=== PATIENT | male | born 1990 | race Caucasian/White ===

== ENCOUNTER → 2020-12-20 12:59 | Outpatient (CLI) | payer BC, SELFPAY | PROVIDERS: PCP Family Medicine; Visit Provider Nurse Practitioner | DX: Z20.822 Contact with and (suspected) exposure to COVID-19 (principal) | CPT/HCPCS: C9803; U0003; U0005 ==

== ENCOUNTER 2021-02-16 11:53 | Emergency (ER) | payer BC, SELFPAY ==
[2021-02-16 13:27] VITALS: BP 141/96; PULSE 74; RESP 19; TEMP 36.9; O2SAT 98; BMI 33.9
--- NOTE | 2021-02-16 13:50 | HMH.EDUTC ---
[facility] [place] Clinical Impression: Sinusitis Qualifiers: Sinusitis location: unspecified location Chronicity: acute Recurrence: non-recurrent Qualified Code(s): J01.90 - Acute sinusitis, unspecified Otitis media Qualifiers: Otitis media type: suppurative Chronicity: acute Laterality: bilateral Recurrence: non-recurrent Spontaneous tympanic membrane rupture: without spontaneous rupture Qualified Code(s): H66.003 - Acute suppurative otitis media without spontaneous rupture of ear drum, bilateral Right conjunctivitis Qualifiers: Conjunctivitis type: acute Acute conjunctivitis type: unspecified Qualified Code(s): H10.31 - Unspecified acute conjunctivitis, right eye Disposition: Home, Self-Care Condition on Discharge: Good Instructions: How to Instill Eye Drops, DI for Sinusitis, DI for Conjunctivitis Additional Instructions: Drink plenty of fluids. Take tylenol or ibuprofen for pain or fever. Take the medications as directed. Follow up with your regular doctor. GO TO THE ER FOR ANY WORSENING SYMPTOMS Use the eye drops as directed. Strict hand washing in the house hold, because conjunctivitis is very contagious. Follow up with your regular doctor. GO TO THE ER FOR ANY WORSENING SYMPTOMS OR CONCERNS Prescriptions: predniSONE [Deltasone 10mg tablet] 10 mg PO BID 3 Days #6 tab Transmission Status: Received by [id number] Moxifloxacin HCl [Vigamox] 1 drp EYE-RIGHT TID 7 Days #3 ml Transmission Status: Received by [id number] Azithromycin [Z-Aryan 250mg Tab*] 250 mg PO UD DOSE PK #6 tab Transmission Status: [id number] Referrals: Eleazar Gamez MD [Primary Care Provider] - Time of Disposition: 14:09 Medical Decision Making - Medical Records Medical records reviewed: No: I reviewed the patient's medical records. - [facility] Inquiry Pt receiving controlled substance: No Vital Signs: 02/16/21 13:27 02/16/21 14:27 Temperature 98.4 F 98.4 F Temperature Source Oral Pulse Rate 74 Pulse Rate [Left] 74 Respiratory Rate 19 19 Blood Pressure 141/96 H Blood Pressure [Right Arm] 141/96 H Blood Pressure Mean [Right Arm] 111 02 Sat by Pulse Oximetry 98 - Lab Data Lab results reviewed: Yes: I reviewed the patient's lab results. [facility] [place] - General Stated complaint: possible pink eye, congestion Time Seen by Provider: 02/16/21 13:50 Mode of Arrival: Ambulatory Source of Information: Patient Limitations: No Limitations Description of Symptoms (Recalled from Triage Doc. by RN): pt believes he has conjunctivitis in his R eye. pt also c/o bilateral ear aches. HEENT Symptoms (Recalled from RN notes): Yes (redness of R eye and bilateral ear aches) Resp Symptoms (Recalled from RN notes): No Skin Symptoms (Recalled from RN notes): No MS Symptoms (Recalled from RN notes): No Functional Status (Recalled from RN notes): wnl - History of Present Illness Provider Complaint: He states that for the past 2 days he has had sinus congestion and bilateral ear pain and pressure. He woke up this morning with right eye matted together. His right eye has been irritated and he has had excessive tearing in that eye since this morning. He denies any eye injury or foreign body. He denies any vision changes. - Related Data Previous Rx's Medication Instructions Recorded tqkjuqheiumpkel-xmxbczbctrvwmcm-RY 10 ml PO Q4-6H PRN #240 ml 09/12/17 2 mg-30 mg-10 mg/5 mL oral syrup loratadine 10 mg tablet 10 mg PO ONCE #30 tab 09/12/17 Azithromycin [Z-Aryan 250mg Tab*] 250 mg PO UD DOSE PK #6 tab 02/16/21 Moxifloxacin HCl [Vigamox] 1 drp EYE-RIGHT TID 7 Days #3 ml 02/16/21 predniSONE [Deltasone 10mg tablet] 10 mg PO BID 3 Days #6 tab 02/16/21 Allergies Allergy/AdvReac Type Severity Reaction Status Date / Time No Known Allergies Allergy Verified 09/12/17 14:18 - Worker's Comp Is this a Worker's Comp case?: No [facility] History - Hepatitis A Screen Drug use
[2021-02-16 14:27] VITALS: BP 141/96; PULSE 74; RESP 19; TEMP 36.9
== END 2021-02-16 14:28 | disposition home or self-care (01) ==
LOC: UTC 11:55
PROVIDERS: Emergency Provider Nurse Practitioner Family; PCP Family Medicine
DX: J01.90 Acute sinusitis, unspecified (principal); H66.003 Acute suppurative otitis media without spontaneous rupture of ear drum, bilateral; H10.31 Unspecified acute conjunctivitis, right eye
CPT/HCPCS: 99202; G0463

== ENCOUNTER → 2021-10-25 08:33 | Outpatient (CLI) | payer BC, SELFPAY | PROVIDERS: PCP Family Medicine; Visit Provider Surgery | DX: Z01.812 Encounter for preprocedural laboratory examination (principal); Z20.822 Contact with and (suspected) exposure to COVID-19 | CPT/HCPCS: C9803; U0003; U0005 ==

== ENCOUNTER 2021-10-28 07:15 | Day surgery (SDC) | payer BC, SELFPAY ==
[2021-10-24 11:21] VITALS: BMI 35.5
[2021-10-28] VITALS (10 sets, daily range): BP systolic 127–160; BP diastolic 53–95; PULSE 81–95; RESP 16–20; TEMP 36.4–36.9; O2SAT 97–100
--- NOTE | 2021-10-28 07:33 | HMH.GSHP ---
HPI HPI: Patient is a pleasant 31-year-old male referred by Dr. Gamez for cyst on the upper back for excision. He states that this has been present for some time. He denies any symptoms but it is quite bothersome due to its size. He saw Dr. Gamez regarding this and given its size it was felt that it required excision by surgery. Patient has not noticed any appreciable drainage. He was seen in the office and found to have a 4 to 5 cm lesion consistent with inclusion cyst. Plan was made for excision [facility] History I have reviewed the patient's past medical history: Yes Medical History: Denies:: Cancer, Diabetes Mellitus Type 1, Diabetes Mellitus Type 2, Internal Pacemaker, MRSA *Have you ever received a pneumonia vaccine?: No *Have you received a flu vaccine this season?: No Other Surgeries: Yes: No Previous Surgery. No: Pacemaker Amputation: No Fractures: No - *Social History Last grade of school completed: High school graduate Smoking Status: Current every day smoker Tobacco Type: smokeless tobacco # Packs/Day (cigarettes): 1 Alcohol Intake: current Alcohol Intake Frequency:: holidays/special occasions only Substance Use Type: denies use *Occupational Status:: employed *Travel in the last 8 weeks: None Family Hx:: Heart Attack, Hypertension Review of Systems - Review of Systems Review of systems:: pertinent systems reviewed and negative unless documented below Meds Home Medications Medication Instructions Recorded Confirmed Type No Known Home Medications 10/24/21 10/28/21 History Allergies Allergy/AdvReac Type Severity Reaction Status Date / Time No Known Allergies Allergy Verified 10/24/21 11:20 Exam - Constitutional no acute distress - *Routine HEENT Exam Head: Present: normocephalic Eye: Present: EOMI, PERRL ENT: Present: mucous membranes moist - *Routine Neck Exam Present: supple. Absent: lymphadenopathy - *Routine Respiratory Exam Present: CTA bilaterally - *Routine Cardiovascular Exam Present: RRR - *Routine Abdominal Exam Present: soft, normoactive bowel sounds. Absent: tenderness - *Routine Rectal Exam Rectal:: deferred - *Routine Genitalia Exam Genitalia:: deferred - *Routine Extremities Exam Absent: cyanosis, clubbing, edema - *Routine Skin Exam Present: warm. Absent: rash Comments: He has a lesion consistent with a noninfected inclusion cyst measuring 4 to 5 cm at the base of the neck on the back. - *Routine Neurological Exam Present: alert, oriented X3 Assessment and Plan - Assessment and plan all Dx Assessment and Plan for all problems:: Plan for excision
--- NOTE | 2021-10-28 08:29 | HMH.ANESCL ---
[facility] Anesthesia Checklist - Patient Identification Patient Identification: Arm Band - Structural Data Admitted From: Home Planned Operative Procedure/s: Excision of Sebaceous Cyst Upper Back Consent for Planned Operative Procedure(s) Verified: Yes Verified Documents: Surgical Consent, History and Physical - NPO Status Verified Time NPO: 00:00 - Additional verifications Anesthesia Reactions: No Hx Blood Transfusions: No Blood Transfusion Reaction: No - Airway Assessment C-Spine Mobility Assessed: Yes (mp2) TMJ Mobility Assessed: Yes Dentition: Good Dentition - Neurological Assessment Level of Consciousness: Awake, Alert - Anesthesia Plan Anesthesia Risk discussed: Yes Anesthesia Plan: Verified ASA Class: II Anesthesia Type: General [facility] History I have reviewed the patient's past medical history: Yes Medical History: Denies:: Cancer, Diabetes Mellitus Type 1, Diabetes Mellitus Type 2, Internal Pacemaker, MRSA, Seizures *Have you ever received a pneumonia vaccine?: No *Have you received a flu vaccine this season?: No Other Medical History: Denies: Blood Transfusion Reaction Anesthesia experience/problems:: nac Other Surgeries: Yes: Other. No: Pacemaker Amputation: No Fractures: No - *Social History Last grade of school completed: High school graduate Smoking Status: Current every day smoker Tobacco Type: smokeless tobacco # Packs/Day (cigarettes): 1 Alcohol Intake: current Alcohol Intake Frequency:: holidays/special occasions only Substance Use Type: denies use *Occupational Status:: employed *Travel in the last 8 weeks: None Family Hx:: Heart Attack, Hypertension
--- NOTE | 2021-10-28 08:49 | P.OP_ITS ---
Date of procedure: 10/28/21 Pre-op Diagnosis:: Sebaceous cyst on the back Post-op Diagnosis:: Same Procedure performed:: Excision of inclusion cyst from upper back (excisional length 4.5 cm) with intermediate complexity closure. Surgeon:: Lance Madison MD [employer]:: Sunday Conner Anesthesia: LMA Estimated blood loss (mL): 10 Clinical Note:: Patient is a pleasant 31-year-old male referred by Dr. Gamez for cyst on the upper back for excision. He states that this has been present for some time. He denies any symptoms but it is quite bothersome due to its size. He saw Dr. Gamez regarding this and given its size it was felt that it required excision by surgery. Patient has not noticed any appreciable drainage. He was seen in the office and found to have a 4 to 5 cm lesion consistent with inclusion cyst. Plan was made for excision Operative findings:: Consistent with noninfected sebaceous cyst Operative note:: Patient was taken the operating room. He was positioned in supine position. General anesthesia was induced via LMA. He was repositioned in lateral position. The area was prepped and draped. Lesion was marked with a skin marker for planned elliptical incision. Local anesthetic was infiltrated. Elliptical incision was made. Dissection was carefully carried down to the cyst capsule. Skin ellipse with the underlying cyst capsule was excised with minimal disruption of the cyst capsule without spillage of caseous contents. This was sent off as a specimen. Wound was irrigated. Hemostasis was achieved with electrocautery. Subdermal tissues were closed with interrupted 3-0 Vicryl. Skin was closed with interrupted 4-0 nylon. Clean dry sterile dressing was applied. Condition: stable Disposition: PACU Specimens:: Sebaceous cyst Complications:: Not immediately apparent
--- NOTE | 2021-10-28 08:57 | HMH.ANESI ---
[facility] Anesthesia Record Part I Intake, IV Amount: 800 Estimated blood loss (mL): 5 Urine output (mL): 0 Blood Pressure: 150/79 SaO2: 100 Pulse Rate: 81 Respiratory Rate: 16 Temperature: 97.7 F Patient is:: Drowsy, Stable Stable to PACU at:: 08:50
--- NOTE | 2021-10-28 14:32 | HMH.ANESII ---
[facility] Anesthesia Record Part II Discharge Time: 09:20 Destination: Surgical Day Care (OP Surgery) PACU nurse assessment reviewed?: Yes Patient Condition:: Good Anesthesia Complications:: None Swallowing reflex intact?: Yes Cyanosis?: No Blood Pressure: 127/84 Pulse Rate: 89 Temperature: 97.6 F Mental Status: Alert & Oriented Pain level:: 0 Nausea and/or vomitting:: None Intake, IV Amount: 0
== END 2021-10-28 09:51 | disposition home or self-care (01) ==
LOC: OR 07:18
PROVIDERS: PCP Family Medicine; Visit Provider Surgery
PROC: (CPT 11406; principal; 2021-10-28 08:45)
DX: L72.0 Epidermal cyst (principal); Z72.0 Tobacco use
CPT/HCPCS: 11406; 12032; 96374; J2405